=== PATIENT | female | born 1960 | race Caucasian/White ===

== ENCOUNTER 2018-09-06 12:04 | Emergency (ER) | payer OTHER ==
[2018-09-06] MEDS ORDERED: ONDANSETRON 4 MG/2 ML VIAL IVP STA (12:39)
[2018-09-06] MEDS ORDERED: diphenhydrAMINE 50 MG/ML 1 ML VIAL IVP STA (12:39)
[2018-09-06] MEDS ORDERED: FAMOTIDINE 20 MG/2 ML VIAL IV STA (12:39)
[2018-09-06] MEDS ORDERED: methylPREDNISolone SOD SUCCI 125 MG/2 ML VIAL IV STA (12:39)
[2018-09-06 13:06] LABS: Basophils % (A) 0 %; Eosinophils # (A) 0.1 k/uL (0-0.7); Eosinophils % (A) 1 %; HCT 40.6 % (34.0-46.0); HGB 13.4 gm/dL (11.4-16.0); Lymphocytes # (A) 2.6 k/uL (1.0-4.8); Lymphocytes % (A) 30 %; MCH 25.9 pg (25.0-35.0); MCV 78.3 fL (80.0-100.0); Mean Platelet Volume 7.1; Monocytes # (A) 0.3 k/uL (0-1.0); Monocytes % (A) 3 %; Neutrophils # (A) 5.7 k/uL (1.3-7.7); Neutrophils % (A) 65 %; Platelet Count 259 k/uL (150-450); RBC 5.18 m/uL (3.80-5.40); RDW 14.9 % (11.5-15.5); WBC 8.8 k/uL (3.8-10.6)
[2018-09-06 13:24] LABS: African American GFR (CKD) >90 (>60 ml/min/1.73 sqM); Anion Gap 8 mmol/L; Blood Urea Nitrogen 8 mg/dL (7-17); Calcium 9.2 mg/dL (8.4-10.2); Carbon Dioxide 22 mmol/L (22-30); Chloride 106 mmol/L (98-107); Glucose 96 mg/dL (74-99); Sodium 136 mmol/L (137-145); Total Bilirubin 0.9 mg/dL (0.2-1.3)
[2018-09-06 13:31] LABS: Albumin 3.8 g/dL (3.5-5.0); Potassium 5.3 mmol/L (3.5-5.1); Total Protein 6.8 g/dL (6.3-8.2)
[2018-09-06 13:32] LABS: ALT 23 U/L (9-52); AST 41 U/L (14-36); Alkaline Phosphatase 48 U/L (38-126)
--- NOTE | 2018-09-06 13:45 | ED ---
Skin/Abscess/FB HPI - General Chief complaint: Skin/Abscess/Foreign Body Stated complaint: Rash, swelling on face Time Seen by Provider: 09/06/18 12:13 Source: family, RN notes reviewed, old records reviewed Mode of arrival: ambulatory Limitations: no limitations - History of Present Illness Initial comments: This Patient is a 57 rolled female presents per his from today with complaints of ALLERGIC reaction, hive-like rash over her chest, face and lips or the past 4 days. She reports it seems to come and go. Patient states she took some Benadryl yesterday with no relief or symptoms to chills and complains of feeling nauseated. She denies any associated chest pain or shortness breath. Denies any difficulty swallowing or breathing. Patient states that she's had no new exposures. She denies any chronic medication use. - Related Data Home Medications Medication Instructions Recorded Confirmed Venlafaxine HCl [Effexor XR] 75 mg PO DAILY 01/12/14 01/12/14 Previous Rx's Medication Instructions Recorded HYDROcodone/APAP 5-325MG [[place] 1 each PO Q6HR PRN #20 tab 01/12/14 5-325] Ibuprofen [Motrin] 800 mg PO Q8HR PRN #30 tab 01/12/14 Famotidine [Pepcid] 20 mg PO BID #20 tablet 09/06/18 Ondansetron Odt [Zofran Odt] 4 mg PO Q8HR PRN #12 tab 09/06/18 diphenhydrAMINE HCL [Benadryl] 25 mg PO Q6H #20 tab 09/06/18 predniSONE 20 mg PO BID #6 tab 09/06/18 Allergies Allergy/AdvReac Type Severity Reaction Status Date / Time No Known Allergies Allergy Verified 09/06/18 12:11 Review of Systems ROS Statement: Those systems with pertinent positive or pertinent negative responses have been documented in the HPI. ROS Other: All systems not noted in ROS Statement are negative. Past Medical History Past Medical History: No Reported History History of Any Multi-Drug Resistant Organisms: None Reported Past Surgical History: Ablation, Section, Cholecystectomy Past Psychological History: Anxiety Smoking Status: Current every day smoker Past Alcohol Use History: Occasional Past Drug Use History: None Reported General Exam - General Exam Comments Initial Comments: Pleasant 57-year-old female. No significant distress. Limitations: no limitations General appearance: alert, in no apparent distress Head exam: Present: atraumatic Eye exam: Present: normal appearance, PERRL, EOMI. Absent: scleral icterus, conjunctival injection, periorbital swelling ENT exam: Present: normal exam, mucous membranes moist Neck exam: Present: normal inspection. Absent: tenderness, meningismus, lymphadenopathy Respiratory exam: Present: normal lung sounds bilaterally. Absent: respiratory distress, wheezes, rales, rhonchi, stridor Cardiovascular Exam: Present: regular rate, normal rhythm, normal heart sounds. Absent: systolic murmur, diastolic murmur, rubs, gallop, clicks GI/Abdominal exam: Present: soft, normal bowel sounds. Absent: distended, tenderness, guarding, rebound, rigid Extremities exam: Present: normal inspection, full ROM, normal capillary refill. Absent: tenderness, pedal edema, joint swelling, calf tenderness Back exam: Present: normal inspection Neurological exam: Present: alert, oriented X3, CN II-XII intact Psychiatric exam: Present: normal affect, normal mood Skin exam: Present: warm, dry, intact, normal color, rash, urticaria Course Vital Signs 09/06/18 12:08 Temperature 98.7 F Pulse Rate 116 H Respiratory 16 Rate Blood Pressure 124/67 O2 Sat by Pulse 97 Oximetry Medical Decision Making - Medical Decision Making Patient is a 57-year-old female with diffuse urticaria over back face and chest the past 4 days. No new exposures the Patient can think of. Patient has EC fistula feels fatigued and somewhat nauseated. Patient is given IV fluids labwork obtained. Patient's labwork was reviewed and unremarkable. She is given IV site [place] Pepcid and Benadryl. On reevaluation she states her hives and itching and she is feeling better. I discussed treatment Patient with oral steroids, continuing Pepcid and Benadryl. Discussed she has prompt follow-up with her primary care doctor. All questions were answered return parameters were discussed. - Lab Data Result diagrams: 09/06/18 12:48 09/06/18 12:48 Lab Results 09/06/18 09/06/18 Range/Units 12:48 12:48 WBC 8.8 (3.8-10.6) k/uL RBC 5.18 (3.80-5.40) m/uL Hgb 13.4 (11.4-16.0) gm/dL Hct 40.6 (34.0-46.0) % MCV 78.3 L (80.0-100.0) fL MCH 25.9 (25.0-35.0) pg MCHC 33.0 (31.0-37.0) g/dL RDW 14.9 (11.5-15.5) % Plt Count 259 (150-450) k/uL Neutrophils % 65 % Lymphocytes % 30 % Monocytes % 3 % Eosinophils % 1 % Basophils % 0 % Neutrophils # 5.7 (1.3-7.7) k/uL Lymphocytes # 2.6 (1.0-4.8) k/uL Monocytes # 0.3 (0-1.0) k/uL Eosinophils # 0.1 (0-0.7) k/uL Basophils # 0.0 (0-0.2) k/uL Sodium 136 L (137-145) mmol/L Potassium 5.3 H (3.5-5.1) mmol/L Chloride 106 (98-107) mmol/L Carbon Dioxide 22 (22-30) mmol/L Anion Gap 8 mmol/L BUN 8 (7-17) mg/dL Creatinine 0.55 (0.52-1.04) mg/dL Est GFR (CKD-EPI)AfAm >90 (>60 ml/min/1.73 sqM) Est GFR (CKD-EPI)NonAf >90 (>60 ml/min/1.73 sqM) Glucose 96 (74-99) mg/dL Calcium 9.2 (8.4-10.2) mg/dL Total Bilirubin 0.9 (0.2-1.3) mg/dL AST 41 H (14-36) U/L ALT 23 (9-52) U/L Alkaline Phosphatase 48 (38-126) U/L Total Protein 6.8 (6.3-8.2) g/dL Albumin 3.8 (3.5-5.0) g/dL Disposition Clinical Impression: Urticaria Disposition: HOME SELF-CARE Condition: Good Instructions (If sedation given, give patient instructions): U[place]icaria (ED) Additional Instructions: Patient denies any close follow-up with primary care doctor. Return to the emergency department if any alarming signs or symptoms occur. Take the medication as prescribed. Recommended following up with possibility of financial services specialist. Prescriptions: diphenhydrAMINE HCL [Benadryl] 25 mg PO Q6H #20 tab Famotidine [Pepcid] 20 mg PO BID #20 tablet predniSONE 20 mg PO BID #6 tab Ondansetron Odt [Zofran Odt] 4 mg PO Q8HR PRN #12 tab PRN Reason: Nausea Is patient prescribed a controlled substance at d/c from ED?: No Referrals: None,Stated [Primary Care Provider] - 1-2 days Marissa Carroll MD [STAFF PHYSICIAN] - 1-2 days Time of Disposition: 14:01
[2018-09-06 14:39] VITALS: BP 119/60; PULSE 99; RESP 18; TEMP 97.6
== END 2018-09-06 14:39 | disposition home or self-care (01) ==
LOC: EC 12:04
DX: L50.9 Urticaria, unspecified (principal); F41.9 Anxiety disorder, unspecified; F17.200 Nicotine dependence, unspecified, uncomplicated; Z79.899 Other long term (current) drug therapy
CPT/HCPCS: 36415; 80053; 85025; 99283; 96374; 96375 ×3; J1200; J2930; J2405